=== PATIENT | female | born 1960 | race Caucasian/White ===

== ENCOUNTER 2025-05-21 11:44 | Emergency (ER) | payer BC ==
[2025-05-21 12:22] VITALS: PULSE 73
--- NOTE | 2025-05-21 12:42 | ED ---
Fall HPI - General Chief Complaint: Fall Stated Complaint: Fall-Facial injury Time Seen by Provider: 05/21/25 12:00 Source: patient, RN notes reviewed Mode of arrival: ambulatory - History of Present Illness Initial Comments: 65-year-old female presenting to the emergency department after a fall. Patient states that [place] she [place]pped on or even pavement falling and skinning her left shoulder and falling onto her right side of her head. She was states that she was wearing sunglasses that caused an abrasion to the left eyebrow. Patient denies loss of consciousness at the time of the fall. She currently is denying headache, neck pain, visual disturbances. She denies blood thinner use. Patient also injured her left shoulder at the time of the fall however denies pain or difficulty with range of motion. Is presenting for further evaluation. Last tetanus vaccine was in 2020. - Related Data Allergies Allergy/AdvReac Type Severity Reaction Status Date / Time Penicillins Allergy Rash/Hives Verified 05/21/25 12:21 Review of Systems ROS Statement: Those systems with pertinent positive or pertinent negative responses have been documented in the HPI. ROS Other: All systems not noted in ROS Statement are negative. Past Medical History Past Medical History: Hypertension Additional Past Medical History / Comment(s): L eye central retina vein occlu marianela History of Any Multi-Drug Resistant Organisms: None Reported Past Surgical History: Section, Hysterectomy, Tubal Ligation Additional Past Surgical History / Comment(s): cataract Past Psychological History: No Psychological Hx Reported Smoking Status: Never smoker Past Alcohol Use History: None Reported Past Drug Use History: None Reported General Exam General appearance: alert, in no apparent distress Eye exam: Present: normal appearance, PERRL, EOMI. Absent: scleral icterus, conjunctival injection, periorbital swelling Pupils: Present: other (left superior eyebrow laceration, 2, 1 cm in length, bleeding controlled, superior eyebrow skin abrasion) ENT exam: Present: normal exam, mucous membranes moist Neck exam: Present: normal inspection. Absent: tenderness, meningismus, lymphadenopathy Respiratory exam: Present: normal lung sounds bilaterally. Absent: respiratory distress, wheezes, rales, rhonchi, stridor Cardiovascular Exam: Present: regular rate, normal rhythm, normal heart sounds. Absent: systolic murmur, diastolic murmur, rubs, gallop, clicks GI/Abdominal exam: Present: soft, normal bowel sounds. Absent: distended, tenderness, guarding, rebound, rigid Left Shoulder Exam: Present: full ROM, tenderness, swelling, abrasion. Absent: ecchymosis, deformity, crepitus Vascular: Absent: vascular compromise Back exam: Present: normal inspection Course Vital Signs 05/21/25 05/21/25 12:16 13:58 Temperature 97.9 F 98.0 F Pulse Rate 73 73 Respiratory 18 20 Rate Blood Pressure 156/77 145/91 O2 Sat by Pulse 98 98 Oximetry Medical Decision Making - Medical Decision Making Was pt. sent in by a medical professional or institution (, PA, [employer], urgent care, hospital, or fci...) When possible be specific @ -No Did you speak to anyone other than the patient for history (EMS, parent, family, police, friend...)? What history was obtained from this source @ -No Did you review nursing and triage notes (agree or disagree)? Why? @ -I reviewed and agree with nursing and triage notes Were old charts reviewed (outside hosp., previous admission, EMS record, old EKG, old radiological studies, urgent care reports/EKG's, fci records)? Report findings @ -No old charts were reviewed Differential Diagnosis (chest pain, altered mental status, abdominal pain women, abdominal pain men, vaginal bleeding, weakness, fever, dyspnea, syncope, headache, dizziness, GI bleed, back pain, seizure, CVA, palpatations, mental health, musculoskeletal)? @ -Laceration, skin avulsion, contusion, concussion, shoulder fracture, shoulder sprain, this list not all inclusive EKG interpreted by me (3pts min.). @ -None X-rays interpreted by me (1pt min.). @ -None done CT interpreted by me (1pt min.). @ -None done U/S interpreted by me (1pt. min.). @ -None done What testing was considered but not performed or refused? (CT, X-rays, U/S, labs)? Why? @ - Considered CT imaging of the brain and C-spine without contrast however patient no loss of consciousness and is currently well-appearing and no headache or neck pain therefore CT imaging is deferred. What meds were considered but not given or refused? Why? @ -None Did you discuss the management of the patient with other professionals (professionals i.e. Dr., PA, [employer], lab, RT, psych nurse, social worker psychiatric, radar repairer, teacher, airfield services officer, correctional case manager)? Give summary @ -No Was smoking cessation discussed for >3mins.? @ -No Was critical care preformed (if so, how long)? @ -No Were there social determinants of health that impacted care today? How? (Homelessness, low income, unemployed, alcoholism, drug addiction, transpo rtation, low edu. Level, literacy, decrease access to med. care, fpc, rehab)? @ -No Was there de-escalation of care discussed even if they declined (Discuss DNR or withdrawal of care, Hospice)? DNR status @ -No What co-morbidities impacted this encounter? (DM, HTN, Smoking, COPD, CAD, Cancer, CVA, ARF, Chemo, Hep., AIDS, mental health diagnosis, sleep apnea, morbid obesity)? @ -None Was patient admitted / discharged? Hospital course, mention meds given and route, prescriptions, significant lab abnormalities, going to OR and other pertinent info. @ -Discharge. 65-year-old female presenting after fall. Overall patient is well-appearing and no signs of distress. Patient has full range of motion of the left upper extremity with a noted overlying skin abrasion, bleeding is controlled. Neurologically patient is intact with no deficits. Abrasions were cleansed with sterile water and Dermabond was applied over the left eyebrow laceration. Patient's tetanus was updated in 2020. Patient is stable for discharge and instructed on supportive treatment. Case discussed with Dr. Gomez. Undiagnosed new problem with uncertain prognosis? @ -No Drug Therapy requiring intensive monitoring for toxicity (Heparin, Nitro, Insulin, Cardizem)? @ -No Were any procedures done? @ -No Diagnosis/symptom? @ -Skin abrasion, laceration Acute, or Chronic, or Acute on Chronic? @ -Acute Uncomplicated (without systemic symptoms) or Complicated (systemic symptoms)? @ -Uncomplicated Side effects of treatment? @ -No Exacerbation, Progression, or Severe Exacerbation? @ -No Poses a threat to life or bodily function? How? (Chest pain, [place], [place], pneumonia, PE, COPD, DKA, ARF, appy, cholecystitis, CVA, Diverticulitis, Homicidal, Suicidal, threat to staff... and all critical care pts) @ -No Disposition Clinical Impression: Fall, Laceration Disposition: HOME SELF-CARE Condition: Good Instructions (If sedation given, give patient instructions): Abrasion (ED), Skin Adhesive Care (ED) Additional Instructions: Please return to the Emergency Department if symptoms worsen or any other concerns. Is patient prescribed a controlled substance at d/c from ED?: No Referrals: Nonstaff,Physician [Primary Care Provider] - 1-2 days Time of Disposition: 13:26
[2025-05-21] MEDS: DIPH,PERTUS(ACELL)TETVAC-LF 0.5 ML VIAL IM ONE (12:46)
[2025-05-21] MEDS: TOPICAL SKIN ADHESIVE 1 EACH AMP TOPICAL ONE (12:46)
[2025-05-21 14:00] VITALS: BP 145/91; RESP 20; TEMP 98
== END 2025-05-21 15:12 | disposition home or self-care (01) ==
LOC: EC 11:44
DX: S01.112A Laceration without foreign body of left eyelid and periocular area, initial encounter (principal); Z88.0 Allergy status to penicillin; W01.0XXA Fall on same level from slipping, tripping and stumbling without subsequent striking against object, initial encounter
CPT/HCPCS: 99283